=== PATIENT | male | born 1945 | race African-American/Black ===

== ENCOUNTER 2018-07-12 09:17 | Inpatient (IN) | payer OTHER ==
--- NOTE | 2018-07-12 09:45 | PDOC ---
History of Present Illness - General Chief Complaint: Blood Sugar Problem Stated Complaint: LOW SUGAR Time Seen by Provider: 07/12/18 09:44 - History of Present Illness Initial Comments: 07/12/18 09:54 History obtained with assistance of daughter at bedside (Shivani Alcazar ) Patient is a 72 year old male with history of diabetes mellitus (non insulin dependent; on glipizide and metformin), hypertension, vascular dementia presents with complaint of lethargy. As per patient's daughter at bedside, this morning he was minimally responsive, and expressed difficulty getting up from bed. His fingerstick blood glucose was measured at 28, prompting his daughter to bring him to the Emergency Department. The daughter administers the patient' s medications, and denies any recent changes, missing or additional doses of medication. He last received his Glipizide, and Metformin last evening. He did not receive any of his home medications this morning. No recent changes in his diet. The daughter endorses that he had similar episode of hypoglycemia one year ago that was treated in [facility]. Denies recent sick contacts, subjective fevers, chills, shortness of breath, cough, chest pain, palpitations , abdominal pain, nausea, vomiting, diarrhea, hematochezia, hematuria, dysuria. Per daughter at bedside, patient appears to be at his baseline. In ED He was given 1 amp D50, with resulting fingerstick blood glucose of 132, subsequently dropping to 86. PMH: diabetes mellitus (non insulin dependent; on glipizide and metformin), hypertension, vascular dementia PSH: right knee surgery 20 years ago Family history Mother: in her 60s due to unknown metastatic cancer Father: unable to provide Social: Lives in [place], currently visiting family. Denies smoking history. Used to drink one beer a day, however no recent alcohol use. Denies illicit drug use. 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 Past History - Travel Traveled outside of the country in the last 30 days: No Close contact w/someone who was outside of country & ill: No - Past Medical History Allergies/Adverse Reactions: Allergies Allergy/AdvReac Type Severity Reaction Status Date / Time No Known Allergies Allergy Verified 07/12/18 09:20 Home Medications: Ambulatory Orders Amlodipine Besylate 10 mg PO DAILY 07/12/18 Aspirin [ASA -] 81 mg PO DAILY 07/12/18 Donepezil HCl 10 mg PO DAILY 07/12/18 Furosemide 20 mg PO DAILY 07/12/18 Glipizide [Glipizide ER] 10 mg PO DAILY 07/12/18 Losartan Potassium 100 mg PO DAILY 07/12/18 Metformin HCl [Glucophage] 1,000 mg PO DAILY 07/12/18 COPD: No Dementia: Yes Diabetes: Yes HTN: Yes - Surgical History Orthopedic Surgery: Yes (right knee surgery (20 years ago)) - Family Disease History Family Disease History: CA: Mother (unknown metastatic cancer) - Immunization History Immunization Up to Date: No - Suicide/Smoking/Psychosocial Hx Smoking History: Never smoked Have you smoked in the past 12 months: No Information on smoking cessation initiated: No Hx Alcohol Use: Yes (one beer/ day ) Drug/Substance Use Hx: No Substance Use Type: None Review of Systems - Review of Systems Able to Perform ROS?: Yes Is the patient limited Czech proficient: No Constitutional: No: Chills, Diaphoresis, Fever, Night Sweats HEENTM: No: Recent change in vision, Throat Pain, Throat Swelling, Difficulty Swallowing Respiratory: No: Cough, Orthopnea, Shortness of Breath, Stridor, Wheezing, Hemoptysis Cardiac (ROS): No: Chest Pain, Palpitations, Syncope ABD/GI: No: Abdominal Distended, Blood Streaked Bowels, Constipated, Diarrhea, Nausea, Rectal Bleeding, Tarry Stools : No: Dysuria, Discharge, Flank Pain, Hematuria Neurological: No: Headache, Paresthesia, Tremors Psychiatric: Yes: Depression *Physical Exam - Vital Signs Last Vital Signs Temp Pulse Resp BP Pulse Ox 0/0 L 07/12/18 09:21 - Physical Exam General Appearance: No: Apparent Distress HEENT: positive: EOMI, FORREST. negative: Scleral Icterus (R), Scleral Icterus (L) , Pharyngeal Erythema, Tonsillar Exudate Neck: positive: Trachea midline, Supple. negative: Stridor, Lymphadenopathy (R) , Lymphadenopathy (L), Rigidity Respiratory/Chest: positive: Lungs Clear, Normal Breath Sounds. negative: Respiratory Distress, Accessory Muscle Use, Crackles, Rales, Stridor, Wheezing Cardiovascular: positive: Regular Rhythm, Regular Rate, S1, S2. negative: Murmur, Tachycardia, Irregular Gastrointestinal/Abdominal: positive: Normal Bowel Sounds, Flat, Soft. negative : Tender, Guarding, Rebound, Tenderness Neurologic: positive: irrigation worker II-XII NML intact, Alert, Motor Strength 5/5. negative: Fully Oriented ED Treatment Course - LABORATORY CBC & Chemistry Diagram: 07/12/18 10:13 07/12/18 10:13 Medical Decision Making - Medical Decision Making 07/12/18 12:08 Patient is a 72 year old male with history of noninsulin dependent diabetes mellitus, hypertension, vascular dementia presented hypoglycemic to 28 upon home fingerstick blood glucose. Patient's daughter at bedside dispenses patient's medications. Denies recent changes in medication, no skipped or doubled doses. Denies recent insulin use. Last Glipizide yesterday evening. Hypoglycemia may be secondary to excessive oral hypglycemic administration ( patient is poor historian unable to confirm history), poor diet, or sepsis. Placing patient on D10% drip Follow CBC, CMP, TSH, Lactic acid, Obtain blood cultures, urinalysis, urine culture, rectal temperature; sepsis workup Obtain chest radiograph, EKG Add on HbA1c Chest radiograph unrevealing. Lactic acid 1.0 TSH 3.38 Repeat fingerstick BGM 71 (decreased from 86 earlier). Patient is on D10% drip Repeat rectal temperature 94.8F (on Shahbaz hugger). Concern that hypothermia may be secondary to hypoglycemic seizure, vs sepsis. 07/12/18 13:13 Will admit for observation to monitor blood glucose. *DC/Admit/Observation/Transfer Diagnosis at time of Disposition: Hypoglycemia - Discharge Dispostion Decision to Admit order: Yes - Referrals - Patient Instructions - Post Discharge Activity
[2018-07-12] MEDS ORDERED: SODIUM CHLORIDE 2,722 ML IV ONE (10:09)
[2018-07-12] MEDS ORDERED: DEXTROSE 10%-WATER - 1,000 ML IV SCH (10:30)
[2018-07-12 10:45] LABS: HEMATOCRIT 40.7 % (35.4-49); MCH 28.1 pg (25.7-33.7); MCHC 31.9 g/dl (32.0-35.9); MEAN PLT VOLUME 10.4 fl (7.5-11.1); PLATELET COUNT 164 K/MM3 (134-434); RBC 4.62 M/mm3 (4.00-5.60); RDW 15.1 % (11.9-15.9); WHITE BLOOD COUNT 5.8 K/mm3 (4.0-10.0)
--- NOTE | 2018-07-12 11:07 | PDOC ---
Documentation entered by Megan Mora SCRIBE, acting as scribe for Nirav Mccauley MD. Nirav Mccauley MD: This documentation has been prepared by the Abby senior Nirvannie, SCRIBE, under my direction and personally reviewed by me in its entirety. I confirm that the documentation accurately reflects all work, treatment, procedures, and medical decision making performed by me. Attending Attestation - Resident Resident Name: Ney Chandra - ED Attending Attestation I have performed the following: I have examined & evaluated the patient, The case was reviewed & discussed with the resident, I agree w/resident's findings & plan - HPI HPI: 07/12/18 11:03 CC: AMS and hypoglycemia HPI: The patient is a 72 year old male, with a significant past medical history of HTN, DM, and vascular dementia, who presents to the emergency department with, AMS and hypoglycemia. As per family at bedside, he was found to be unresponsive prompting their call to EMS. As per EMS, en route his BGM was 28 and he was given D50 thus, he became responsive but, lethargic. Patient just traveled from [place] yesterday and grandson notes he was eating but, skipped a few meals. Patient had a similar episode a few months ago in [place] at which time he was given sugar and discharged home. Patient is demented at baseline thus, history was obtained via family at bedside. Allergies: NKDA Social History: Visiting from [place]. Nonsmoker. Denies EtOH use and recreational drug use. - Physicial Exam PE: 07/12/18 11:03 Exam: Vitals: Triage Vital signs reviewed General Appearance: no acute distress, well nourished well developed, Head: Atraumatic, normocephalic Throat: +Dry mucous membranes. Neck: Supple Chest Wall: Nontender Cardiac: Regular rate and rhythm, no murmurs, no rubs, no gallops, Lungs: Clear to auscultation bilateral, good air movement bilaterally, Abdomen: Soft, nondistended, normal bowel sounds, nontender to palpation Rectal: Exam deferred Extremities: Full range of motion to all extremities, no cyanosis, clubbing, or edema Skin: Warm and dry, no rashes or lesions, no petechiae Neuro: +Demented, Slow to respond to questioning, AOx2; Cranial Nerves 2-12 grossly intact, Strength intact to all extremities, Sensation intact to all extremities Psych: normal mood, normal affect - Medical Decision Making 07/12/18 11:04 72 year old male, with a significant past medical history of HTN, DM, and vascular dementia, who presents to the emergency department with, AMS and hypoglycemia. Plan is: Sepsis protocol/Workup D10 Shahbaz Hagan 07/12/18 15:51 History and examination consistent with persistent hypo-glycemia likely secondary to patient being on a sulfonylurea Hypothermia likely secondary to bite diabetic seizure this morning it is correcting nicely with bear tcaos No fever no white count no elevated lactic acid low suspicion for infectious at this time given need for D10 drip and that patient is on a long testing anti- hyperglycemic we'll admit to medicine for further management. Heart Score/ECG Review - ECG Impressions Comment:: 07/12/18 15:51 EKG performed at 948 demonstrates normal sinus rhythm [address] elevations or T-wave inversions. Interpreted by me.
[2018-07-12 11:11] LABS: EPI CELLS 6.3 /HPF (0-5/HPF); URINE APPEARANCE CLOUDY; URINE BACTERIA 0.5 /hpf (NEGATIVE); URINE BILIRUBIN NEGATIVE (NEGATIVE); URINE CASTS 46 /lpf (0-8); URINE COLOR YELLOW; URINE GLUCOSE (UA) NEGATIVE (NEGATIVE); URINE KETONE TRACE (NEGATIVE); URINE LEUK ESTERASE NEGATIVE (NEGATIVE); URINE NITRITE NEGATIVE (NEGATIVE); URINE PROTEIN 2+ (NEGATIVE); URINE RBC 1 /hpf (0-4); URINE UROBILINOGEN 0.2 mg/dL (0.2-1.0); URINE WBC 5 /hpf (0-5)
[2018-07-12 11:39] LABS: ALBUMIN 3.4 g/dl (3.4-5.0); ALK PHOS 138 U/L (45-117); ANION GAP 8 MMOL/L (8-16); BILIRUBIN,TOTAL 0.2 mg/dL (0.2-1); BLOOD UREA NITROGEN 45 mg/dL (7-18); CALCIUM 9.3 mg/dL (8.5-10.1); CHLORIDE 112 mmol/L (98-107); CO2 23 mmol/L (21-32); CREATININE 1.8 mg/dL (0.55-1.3); GLUCOSE,RANDOM 81 mg/dL (74-106); POTASSIUM 4.5 mmol/L (3.5-5.1); SGOT/AST 48 U/L (15-37); SGPT/ALT 60 U/L (13-61); SODIUM 143 mmol/L (136-145); TOT PROT 7.3 g/dl (6.4-8.2)
[2018-07-12 11:44] LABS: ACETONE SERUM NEGATIVE (NEGATIVE)
--- NOTE | 2018-07-12 14:24 | HP ---
CHIEF COMPLAINT: hypoglycemia PCP: Dr. Gray ([place]) HISTORY OF PRESENT ILLNESS: 72 y/o M with PMH NIDDM (on glipizide, metformin), HTN, vascular dementia, who presents to the ED c/o lethargy that started this AM. As per daughter at bedside , pt was so lethargic this AM that he was barely arousable. She checked his BG twice and it was 28. For this reason, she called EMS and he was brought to [facility] for further evaluation. She states that his BG has been ranging 56-96 in the AM at baseline. His last meds were last night and consisted of glipizide and metformin. He has been on these meds for four and twelve years respectively. Does not follow with an delivery architect, and is given meds by his primary, Dr. Gray. No recent illnesses. Pt has had a poor appetite over the last few days. Denies BARONE, fever, chills, SOB, chest pain or pressure, or changes in urinary or bowel function. At baseline, pt lives with his daughter. Has a home health aid 2x / week. ER course was notable for: (1) 1 amp d50, d10 gtt (2) hypothermic ~94F (3) Recent Travel: denies PAST MEDICAL HISTORY: as above PAST SURGICAL HISTORY: R knee sx 20 yrs ago Social History: lives in [place] Smoking: denies Alcohol: denies Drugs: denies Family History: mother- age 60s passed from unknown met cancer Allergies No Known Allergies Allergy (Verified 07/12/18 09:20) HOME MEDICATIONS: Home Medications Medication Instructions Recorded Amlodipine Besylate 10 mg PO DAILY 07/12/18 Aspirin [ASA -] 81 mg PO DAILY 07/12/18 Donepezil HCl 10 mg PO DAILY 07/12/18 Furosemide 20 mg PO DAILY 07/12/18 Glipizide [Glipizide ER] 10 mg PO DAILY 07/12/18 Losartan Potassium 100 mg PO DAILY 07/12/18 Metformin HCl [Glucophage] 1,000 mg PO DAILY 07/12/18 confirmed dosages and meds with daughter verbally REVIEW OF SYSTEMS CONSTITUTIONAL: +lethargy, hypothermia Absent: fever, chills, diaphoresis, generalized weakness, malaise, loss of appetite, weight change HEENT: Absent: rhinorrhea, nasal congestion, throat pain, throat swelling, difficulty swallowing, mouth swelling, ear pain, eye pain, visual changes CARDIOVASCULAR: Absent: chest pain, syncope, palpitations, irregular heart rate, lightheadedness , peripheral edema RESPIRATORY: Absent: cough, shortness of breath, dyspnea with exertion, orthopnea, wheezing, stridor, hemoptysis GASTROINTESTINAL: Absent: abdominal pain, abdominal distension, nausea, vomiting, diarrhea, constipation, melena, hematochezia GENITOURINARY: Absent: dysuria, frequency, urgency, hesitancy, hematuria, flank pain, genital pain MUSCULOSKELETAL: Absent: myalgia, arthralgia, joint swelling, back pain, neck pain SKIN: Absent: rash, itching, pallor HEMATOLOGIC/IMMUNOLOGIC: Absent: easy bleeding, easy bruising, lymphadenopathy, frequent infections ENDOCRINE: Absent: unexplained weight gain, unexplained weight loss, heat intolerance, cold intolerance NEUROLOGIC: Absent: headache, focal weakness or paresthesias, dizziness, unsteady gait, seizure, mental status changes, bladder or bowel incontinence PSYCHIATRIC: Absent: anxiety, depression, suicidal or homicidal ideation, hallucinations. PHYSICAL EXAMINATION Vital Signs - 24 hr 07/12/18 07/12/18 07/12/18 09:21 10:20 12:36 Temperature 94.3 F L 94.8 F L Pulse Rate 58 L Pulse Rate [ 59 L Left] Respiratory 16 18 Rate Blood Pressure 169/91 Blood Pressure 138/68 [Left Arm] O2 Sat by Pulse 100 100 Oximetry (%) 07/12/18 07/12/18 13:44 14:04 Temperature 97.4 F L 94.8 F L Pulse Rate Pulse Rate [ 56 L Left] Respiratory 18 Rate Blood Pressure Blood Pressure 129/87 [Left Arm] O2 Sat by Pulse 98 Oximetry (%) GENERAL: Lethargic. AAO x2. has dementia. +sandra hugger HEAD: Normal with no signs of trauma. EYES: Pupils equal, round and reactive to light, extraocular movements intact, sclera anicteric, conjunctiva clear. EARS, NOSE, THROAT: Ears normal, nares patent, oropharynx clear without exudates. Dry mucous membranes. NECK: Normal range of motion, supple LUNGS: Breath sounds equal, clear to auscultation bilaterally. No wheezes, and no crackles. No accessory muscle use. HEART: Regular rate and rhythm, normal S1 and S2 without murmur, rub or gallop. ABDOMEN: Soft, nontender, not distended, normoactive bowel sounds, no guarding LOWER EXTREMITIES: 2+ pt pulses, warm, well-perfused. 2+ pitting edema b/l NEUROLOGICAL: Cranial nerves II-XII intact. Normal speech. Normal gait. PSYCHIATRIC: Cooperative. Good eye contact. SKIN: Warm, dry Laboratory Results 07/12/18 07/12/18 07/12/18 10:13 10:13 10:14 WBC 5.8 Hgb 13.0 Hct 40.7 Plt Count 164 Sodium 143 Potassium 4.5 Chloride 112 H BUN 45 H Creatinine 1.8 H POC Glucometer Alkaline Phosphatase 138 H TSH 3.93 H Urine Protein 2+ H Urine Ketones Trace H Urine Urobilinogen 0.2 Ur Leukocyte Esterase Negative Urine WBC (Auto) 5 Acetone, Qual Negative 07/12/18 07/12/18 12:28 13:49 Creatinine POC Glucometer 71 165 Alkaline Phosphatase EKG: +sinus layton with PVCs, qtc 412ms. no acute st-t wave changes CXR: without acute changes ASSESSMENT/PLAN: 72 y/o M with PMH NIDDM (on glipizide, metformin), HTN, vascular dementia, who presents to the ED c/o lethargy that started this AM. #Hypoglycemia likely 2/2 medications -likely as pt with a1c 6.6, sugar likely overcorrected with glipizide, metformin -with elderly, need to allow for higher BG levels to avoid for falls -will c/w d10 gtt for now. cont to monitor BG q3h. once BG consistently elevated can dc gtt -will not restart ISS at this time to avoid further hypoglycemic events. can start tomorrow -hold glipizide, metformin #Hypothermia likely 2/2 hypoglycemia -will c/w sandra balderrama for now -should improve once BG corrected #HTN- controlled -c/w norvasc -hold losartan # KIARA or KIARA on CKD -no evidence of baseline -will hold losartan -will send urine Na, Cr to check FEna #LE Edema -may be 2/2 CHF; no known history of. as per daughter, past ECHO have been WNL -c/w lasix tomorrow #vascular dementia -c/w aricept #F/E/N d10 gtt 100 cc/hr continue to follow lytes diabetic, sodium controlled diet #PPX DVT: SCD's #Dispo med-surg obs anticipate dc in 24-48 hrs if pt sugar improves pt to leave for [place] on sunday as per family Visit type - Emergency Visit Emergency Visit: Yes ED Registration Date: 07/12/18 Care time: The patient presented to the Emergency Department on the above date and was hospitalized for further evaluation of their emergent condition. - New Patient This patient is new to me today: Yes Date on this admission: 07/12/18 - Critical Care Critical Care patient: No
--- NOTE | 2018-07-12 14:28 | PN ---
Teaching Attending Note Name of Resident: Veronika Russell ATTENDING PHYSICIAN STATEMENT I saw and evaluated the patient. I reviewed the resident's note and discussed the case with the resident. I agree with the resident's findings and plan as documented. SUBJECTIVE: This is a 72 year old man with a history of HTN, type 2 DM, dementia who comes to the ED because of lethargy. Her daughter found him minimally arousable. She found his blood glucose to be 28 and so she called EMS. She notes that he has not been eating well. He last took metformin and glipizide last night. OBJECTIVE: Vital Signs Period Temp Pulse Resp BP Sys/Paidlla Pulse Ox Last 24 Hr 94.3 F-97.4 F 56-59 16-18 129-169/68-91 98-100 GENERAL: Lethargic, confused HEART: S1S2, bradycardic LUNGS: Clear ABDOMEN: Soft, non-tender, non-distended, normal BS EXTREMITIES: 2+ edema Laboratory Tests 07/12/18 07/12/18 07/12/18 09:57 10:13 10:13 WBC 5.8 RBC 4.62 Hgb 13.0 Hct 40.7 MCV 88.0 MCH 28.1 MCHC 31.9 L RDW 15.1 Plt Count 164 MPV 10.4 Sodium 143 Potassium 4.5 Chloride 112 H Carbon Dioxide 23 Anion Gap 8 BUN 45 H Creatinine 1.8 H Est GFR (CKD-EPI)AfAm 42.63 Est GFR (CKD-EPI)NonAf 36.78 POC Glucometer 86 Random Glucose 81 Hemoglobin A1c % Lactic Acid Calcium 9.3 Total Bilirubin 0.2 AST 48 H ALT 60 Alkaline Phosphatase 138 H Troponin I < 0.02 Total Protein 7.3 Albumin 3.4 TSH 3.93 H Urine Color Urine Appearance Urine pH Ur Specific [place] Urine Protein Urine Glucose (UA) Urine Ketones Urine Blood Urine Nitrite Urine Bilirubin Urine Urobilinogen Ur Leukocyte Esterase Urine WBC (Auto) Urine RBC (Auto) Urine Casts (Auto) U Epithel Cells (Auto) Urine Bacteria (Auto) Acetone, Qual Negative 07/12/18 07/12/18 07/12/18 10:13 10:14 10:14 WBC RBC Hgb Hct MCV MCH MCHC RDW Plt Count MPV Sodium Potassium Chloride Carbon Dioxide Anion Gap BUN Creatinine Est GFR (CKD-EPI)AfAm Est GFR (CKD-EPI)NonAf POC Glucometer Random Glucose Hemoglobin A1c % 6.6 H Lactic Acid 1.0 Calcium Total Bilirubin AST ALT Alkaline Phosphatase Troponin I Total Protein Albumin TSH Urine Color Yellow Urine Appearance Cloudy Urine pH 5.0 Ur Specific [place] 1.017 Urine Protein 2+ H Urine Glucose (UA) Negative Urine Ketones Trace H Urine Blood Negative Urine Nitrite Negative Urine Bilirubin Negative Urine Urobilinogen 0.2 Ur Leukocyte Esterase Negative Urine WBC (Auto) 5 Urine RBC (Auto) 1 Urine Casts (Auto) 46 U Epithel Cells (Auto) 6.3 Urine Bacteria (Auto) 0.5 Acetone, Qual 07/12/18 07/12/18 12:28 13:49 WBC RBC Hgb Hct MCV MCH MCHC RDW Plt Count MPV Sodium Potassium Chloride Carbon Dioxide Anion Gap BUN Creatinine Est GFR (CKD-EPI)AfAm Est GFR (CKD-EPI)NonAf POC Glucometer 71 165 Random Glucose Hemoglobin A1c % Lactic Acid Calcium Total Bilirubin AST ALT Alkaline Phosphatase Troponin I Total Protein Albumin TSH Urine Color Urine Appearance Urine pH Ur Specific [place] Urine Protein Urine Glucose (UA) Urine Ketones Urine Blood Urine Nitrite Urine Bilirubin Urine Urobilinogen Ur Leukocyte Esterase Urine WBC (Auto) Urine RBC (Auto) Urine Casts (Auto) U Epithel Cells (Auto) Urine Bacteria (Auto) Acetone, Qual Home Medications Medication Instructions Recorded Amlodipine Besylate 10 mg PO DAILY 07/12/18 Aspirin [ASA -] 81 mg PO DAILY 07/12/18 Donepezil HCl 10 mg PO DAILY 07/12/18 Furosemide 20 mg PO DAILY 07/12/18 Glipizide [Glipizide ER] 10 mg PO DAILY 07/12/18 Losartan Potassium 100 mg PO DAILY 07/12/18 Metformin HCl [Glucophage] 1,000 mg PO DAILY 07/12/18 ASSESSMENT AND PLAN: This is a 72 year old man with a history of HTN, type 2 DM, dementia who presented to the ED with lethargy and hypoglycemia. 1. Type 2 DM, uncontrolled, with profound hypoglycemia and hypothermia - Hold metformin, glipizide - Continue IV D10 and monitor fingersticks closely - Continue warming blanket 2. Possible hypothyroidism - TSH is slightly elevated at 3.93 - Will check FT4 3. Probable acute kidney injury on stage 3 CKD - Likely secondary to poor oral intake, diuretic use - Check renal US - IV fluid - Monitor BUN, creatinine 4. Leg edema - On Lasix at home - will hold for now secondary to elevated creatinine - Daughter denies history of CHF - Possibly secondary to hypoalbuminemia (albumin is 3.4 but will recheck after hydration, urine has 2+ protein) - Possibly secondary to Norvasc 5. HTN - Continue Norvasc - Hold Cozaar, Lasix for now secondary to elevated creatinine 6. Dementia - Continue Aricept
[2018-07-12] MEDS ORDERED: INSULIN SLIDING SCALE (NOVOLOG) 1 VIAL SQ SCH (16:30)
--- NOTE | 2018-07-13 07:51 | PN ---
Progress Note, Physician Chief Complaint: No compliant eating breakfast alert - Current Medication List Current Medications: Active Medications Amlodipine Besylate (Norvasc -) 10 mg PO DAILY JANE Aspirin (Asa -) 81 mg PO DAILY JANE Donepezil HCl (Aricept -) 10 mg PO DAILY JANE Dextrose (D10w -) 1,000 mls @ 100 mls/hr IV ASDIR JANE Last Admin: 07/12/18 11:03 Dose: 100 mls/hr - Objective Vital Signs: Vital Signs Temperature 98.4 F 07/13/18 07:04 Pulse Rate 60 07/13/18 07:04 Respiratory Rate 20 07/13/18 07:04 Blood Pressure 137/77 07/13/18 07:04 O2 Sat by Pulse Oximetry (%) 98 07/12/18 21:00 Elderly man plaesant no acute distress HEENT: Mm moist, no anemia, NECK: No JVd No Bruit CHEST: CTA B/L CVS: S1S2 R ABD: No distention, non tender Bs + EXT: No dipika afeet, no calf tenderness PROGRESSIVE CARE NURSE: Alert non focal Labs: CBC, BMP 07/13/18 05:30 07/13/18 05:30 Problem List - Problems (1) Toxic metabolic encephalopathy Assessment/Plan: AMS due to Hypoglycemia , now FS are > 200 will switch to D% last Glipizide > 48 hrs ago F/U Accuchecks Code(s): G92 - TOXIC ENCEPHALOPATHY (2) Hypoglycemia Code(s): E16.2 - HYPOGLYCEMIA, UNSPECIFIED (3) HTN (hypertension) Code(s): I10 - ESSENTIAL (PRIMARY) HYPERTENSION (4) KIARA (acute kidney injury) Assessment/Plan: Imprved with Hydration F/U BMP Code(s): N17.9 - ACUTE KIDNEY FAILURE, UNSPECIFIED (5) Dehydration Assessment/Plan: Corrected with IV Hydration Code(s): E86.0 - DEHYDRATION (6) Dementia Assessment/Plan: Stable no agitation Code(s): F03.90 - UNSPECIFIED DEMENTIA WITHOUT BEHAVIORAL DISTURBANCE (7) T2DM (type 2 diabetes mellitus) Assessment/Plan: Oral meds are on holsd due to hyperglycemia. Code(s): E11.9 - TYPE 2 DIABETES MELLITUS WITHOUT COMPLICATIONS
[2018-07-13 07:55] LABS: BASO % 0.4 % (0-2.0); EOS % 1.4 % (0-4.5); HEMATOCRIT 33.5 % (35.4-49); MCH 28.5 pg (25.7-33.7); MCHC 32.8 g/dl (32.0-35.9); MEAN CELL VOLUME 86.6 fl (80-96); NEUT % 45.2 % (42.8-82.8); PLATELET COUNT 136 K/MM3 (134-434); RBC 3.86 M/mm3 (4.00-5.60); RDW 14.6 % (11.9-15.9); WHITE BLOOD COUNT 5.7 K/mm3 (4.0-10.0)
[2018-07-13 08:34] LABS: ALBUMIN 2.7 g/dl (3.4-5.0); BILIRUBIN,TOTAL 0.3 mg/dL (0.2-1); CALCIUM 8.5 mg/dL (8.5-10.1); CREATININE 1.2 mg/dL (0.55-1.3); MAGNESIUM 1.7 mg/dL (1.8-2.4); POTASSIUM 4.2 mmol/L (3.5-5.1); TOT PROT 5.8 g/dl (6.4-8.2)
[2018-07-13] MEDS ORDERED: FUROSEMIDE 20 MG TABLET (FP) PO SCH (10:00)
[2018-07-13] MEDS: ASPIRIN 81 MG CHEWABLE TABLETS PO SCH (10:07)
[2018-07-13] MEDS: DONEPEZIL HCL 10 MG TABLET (FP) PO SCH (10:07)
[2018-07-13] MEDS: amLODIPine BESYLATE 10 MG TABLET (FP) PO SCH (10:07)
--- NOTE | 2018-07-13 11:43 | EKG ---
Test Reason : Blood Pressure : / mmHG Vent. Rate : 057 BPM Atrial Rate : 057 BPM P-R Int : 176 ms QRS Dur : 098 ms QT Int : 424 ms P-R-T Axes : 073 060 044 degrees QTc Int : 412 ms SINUS BRADYCARDIA WITH OCCASIONAL PREMATURE VENTRICULAR COMPLEXES OTHERWISE NORMAL ECG NO PREVIOUS ECGS AVAILABLE Confirmed by DANNY ALARCON, MICHEL ([id number]) on 07/13/2018 11:43:11 AM Referred By: Confirmed By:MICHEL DELGADO MD
[2018-07-13] MEDS: DEXTROSE 5%-0.45% SALINE 1,000 ML IV SCH (15:32)
[2018-07-14] MEDS: DEXTROSE 5%-0.45% SALINE 1,000 ML IV SCH (04:00)
[2018-07-14 08:29] LABS: BASO % 0.4 % (0-2.0); EOS % 1.7 % (0-4.5); HEMATOCRIT 34.3 % (35.4-49); HEMOGLOBIN 11.2 GM/dL (11.7-16.9); LYMPH % 36.7 % (8-40); MCH 28.6 pg (25.7-33.7); MCHC 32.8 g/dl (32.0-35.9); MEAN CELL VOLUME 87.1 fl (80-96); MONO % 11.3 % (3.8-10.2); NEUT % 49.9 % (42.8-82.8); PLATELET COUNT 122 K/MM3 (134-434); RBC 3.93 M/mm3 (4.00-5.60); RDW 14.6 % (11.9-15.9); WHITE BLOOD COUNT 5.4 K/mm3 (4.0-10.0)
[2018-07-14 09:02] LABS: CALCIUM 8.5 mg/dL (8.5-10.1); CREATININE 0.8 mg/dL (0.55-1.3); POTASSIUM 4.1 mmol/L (3.5-5.1)
[2018-07-14] MEDS: DONEPEZIL HCL 10 MG TABLET (FP) PO SCH (09:10)
[2018-07-14] MEDS: amLODIPine BESYLATE 10 MG TABLET (FP) PO SCH (09:10)
[2018-07-14] MEDS: ASPIRIN 81 MG CHEWABLE TABLETS PO SCH (09:10)
--- NOTE | 2018-07-14 12:24 | PN ---
Physical Exam: SUBJECTIVE: Patient seen and examined. He is confused but has no complaints. OBJECTIVE: Vital Signs Period Temp Pulse Resp BP Sys/Padilla Pulse Ox Last 24 Hr 98.4 F-98.9 F 66-71 18-22 140-151/80-88 GENERAL: The patient is awake, alert, confused, in no acute distress. LUNGS: Breath sounds equal, clear to auscultation bilaterally, no wheezes, no crackles, no accessory muscle use. HEART: Regular rate and rhythm, S1, S2 without murmur, rub or gallop. ABDOMEN: Soft, nontender, nondistended, normoactive bowel sounds, no guarding, no rebound, no hepatosplenomegaly, no masses. EXTREMITIES: 2+ pulses, warm, well-perfused, no edema. Laboratory Results - last 24 hr 07/13/18 07/13/18 07/14/18 16:16 21:33 05:50 WBC RBC Hgb Hct MCV MCH MCHC RDW Plt Count MPV Absolute Neuts (auto) Neutrophils % Lymphocytes % Monocytes % Eosinophils % Basophils % Nucleated RBC % Sodium Potassium Chloride Carbon Dioxide Anion Gap BUN Creatinine Est GFR (CKD-EPI)AfAm Est GFR (CKD-EPI)NonAf POC Glucometer 214 205 Random Glucose Calcium Ur Random Creatinine < 13.0 L Ur Random Sodium 07/14/18 07/14/18 07/14/18 05:50 06:09 07:50 WBC 5.4 RBC 3.93 L Hgb 11.2 L Hct 34.3 L MCV 87.1 MCH 28.6 MCHC 32.8 RDW 14.6 Plt Count 122 L MPV 10.0 Absolute Neuts (auto) 2.7 Neutrophils % 49.9 Lymphocytes % 36.7 Monocytes % 11.3 H Eosinophils % 1.7 Basophils % 0.4 Nucleated RBC % 0 Sodium Potassium Chloride Carbon Dioxide Anion Gap BUN Creatinine Est GFR (CKD-EPI)AfAm Est GFR (CKD-EPI)NonAf POC Glucometer 136 Random Glucose Calcium Ur Random Creatinine Ur Random Sodium 75 07/14/18 07/14/18 07:50 12:00 WBC RBC Hgb Hct MCV MCH MCHC RDW Plt Count MPV Absolute Neuts (auto) Neutrophils % Lymphocytes % Monocytes % Eosinophils % Basophils % Nucleated RBC % Sodium 144 Potassium 4.1 Chloride 113 H Carbon Dioxide 25 Anion Gap 6 L BUN 21 H Creatinine 0.8 Est GFR (CKD-EPI)AfAm 103.44 Est GFR (CKD-EPI)NonAf 89.25 POC Glucometer 273 Random Glucose 152 H Calcium 8.5 Ur Random Creatinine Ur Random Sodium Active Medications Generic Name Dose Route Start Last Admin Trade Name Amilcarq PRN Reason Stop Dose Admin Amlodipine Besylate 10 mg 07/13/18 10:00 07/14/18 09:10 Norvasc - PO 10 mg DAILY JANE Administration Aspirin 81 mg 07/13/18 10:00 07/14/18 09:10 Asa - PO 81 mg DAILY JANE Administration Donepezil HCl 10 mg 07/13/18 10:00 07/14/18 09:10 Aricept - PO 10 mg DAILY JANE Administration ASSESSMENT/PLAN: This is a 72 year old man with a history of HTN, type 2 DM, dementia who presented to the ED with lethargy and hypoglycemia. 1. Type 2 DM, uncontrolled, with profound hypoglycemia, hypothermia, acute metabolic encephalopathy - Mental status improved - Hypothermia resolved - IVF changed from D10 to D5 yesterday - will discontinue and continue to monitor fingersticks - Continue to hold metformin, glipizide 2. No evidence of hypothyroidism - TSH slightly elevated at 3.93 with normal FT4 3. Acute kidney injury - Likely secondary to poor oral intake, diuretic use - Improved - Renal US shows left kidney simple cysts, large prostate 4. Leg edema - Daughter denies history of CHF - Possibly secondary to hypoalbuminemia, Norvasc - Lasix held secondary to KIARA 5. HTN - Continue Norvasc - Resume Cozaar - Lasix held secondary to KIARA 6. Dementia - Continue Aricept Visit type - Emergency Visit Emergency Visit: Yes ED Registration Date: 07/12/18 Care time: The patient presented to the Emergency Department on the above date and was hospitalized for further evaluation of their emergent condition. - New Patient This patient is new to me today: No - Critical Care Critical Care patient: No - Discharge Referral Referred to [facility] Med P.C.: No
[2018-07-14] MEDS: LOSARTAN POTASSIUM 50 MG TABLET (FP) PO SCH (12:42)
[2018-07-14 14:25] VITALS: BMI 18.8
[2018-07-15] MEDS ORDERED: QUEtiapine FUMARATE 25 MG TABLET (FP) PO ONE (02:30)
[2018-07-15] MEDS ORDERED: LORazepam 2 MG/ML SDV VIAL IVPUSH ONE (03:15)
[2018-07-15 07:57] LABS: CALCIUM 9.4 mg/dL (8.5-10.1); CREATININE 0.6 mg/dL (0.55-1.3); POTASSIUM 3.8 mmol/L (3.5-5.1)
[2018-07-15] MEDS: amLODIPine BESYLATE 10 MG TABLET (FP) PO SCH (10:33)
[2018-07-15] MEDS: LOSARTAN POTASSIUM 50 MG TABLET (FP) PO SCH (10:33)
[2018-07-15] MEDS: ASPIRIN 81 MG CHEWABLE TABLETS PO SCH (10:33)
[2018-07-15] MEDS: DONEPEZIL HCL 10 MG TABLET (FP) PO SCH (10:33)
--- NOTE | 2018-07-15 13:29 | PN ---
Progress Note, Physician Chief Complaint: lethargy History of Present Illness: seen and examined at bedside, patient agitated overnight and given ativan. This morning he is lethargic and difficult to arouse. - Current Medication List Current Medications: Active Medications Amlodipine Besylate (Norvasc -) 10 mg PO DAILY [facility] Last Admin: 07/15/18 10:33 Dose: Not Given Aspirin (Asa -) 81 mg PO DAILY [facility] Last Admin: 07/15/18 10:33 Dose: Not Given Donepezil HCl (Aricept -) 10 mg PO DAILY [facility] Last Admin: 07/15/18 10:33 Dose: Not Given Losartan Potassium (Cozaar -) 100 mg PO DAILY [facility] Last Admin: 07/15/18 10:33 Dose: Not Given - Objective Vital Signs: Vital Signs Temperature 92.1 F L 07/15/18 12:02 Pulse Rate 61 07/15/18 09:00 Respiratory Rate 20 07/15/18 09:00 Blood Pressure 157/98 07/15/18 09:00 O2 Sat by Pulse Oximetry (%) 96 07/15/18 09:00 Constitutional: Yes: Other (lethargic, awakens to sternal rub) Cardiovascular: Yes: WNL, Regular Rate and Rhythm Respiratory: Yes: WNL, Regular, CTA Bilaterally Gastrointestinal: Yes: WNL, Normal Bowel Sounds, Soft Musculoskeletal: Yes: WNL Extremities: Yes: WNL Edema: Yes Edema: LLE: Trace, RLE: Trace Neurological: Yes: Confusion, Lethargy. No: Alert Labs: CBC, BMP 07/14/18 07:50 07/15/18 06:30 Problem List - Problems (1) KIARA (acute kidney injury) Code(s): N17.9 - ACUTE KIDNEY FAILURE, UNSPECIFIED (2) Dehydration Code(s): E86.0 - DEHYDRATION (3) Dementia Code(s): F03.90 - UNSPECIFIED DEMENTIA WITHOUT BEHAVIORAL DISTURBANCE (4) HTN (hypertension) Code(s): I10 - ESSENTIAL (PRIMARY) HYPERTENSION (5) Hypoglycemia Code(s): E16.2 - HYPOGLYCEMIA, UNSPECIFIED (6) T2DM (type 2 diabetes mellitus) Code(s): E11.9 - TYPE 2 DIABETES MELLITUS WITHOUT COMPLICATIONS (7) Toxic metabolic encephalopathy Code(s): G92 - TOXIC ENCEPHALOPATHY Assessment/Plan 72 year old man with a history of HTN, DM2, and dementia present with lethargy and hypoglycemia 1. Acute metabolic encephalopathy secondary to profound hypoglycemia, hypothermia -mental status was improving until given Ativan last night -AVOID benzos, would favor seroquel -patient again hypothermic, cbc, ua, cultures ordered stat -sandra balderrama -tsh mildly elevated, normal t4 -c/w IVF -BS normalized, off dextrose gtt -continue to hold metformin, glipizide, hba1c 6.6%, patient should be off meds moving forward 2. KIARA, resolved 3. LE edema -possibly from norvsac? chronic in nature? -monitor and resume lasix on discharge 4. HTN -c/w norvasc and cozaar 5. Dementia -on aricept
[2018-07-15 16:25] LABS: BASO % 0.6 % (0-2.0); HEMATOCRIT 34.2 % (35.4-49); HEMOGLOBIN 11.1 GM/dL (11.7-16.9); LYMPH % 32.7 % (8-40); MCHC 32.5 g/dl (32.0-35.9); MEAN CELL VOLUME 86.2 fl (80-96); MEAN PLT VOLUME 10.3 fl (7.5-11.1); MONO % 13.9 % (3.8-10.2); NEUT % 49.8 % (42.8-82.8); PLATELET COUNT 140 K/MM3 (134-434); RBC 3.97 M/mm3 (4.00-5.60); RDW 14.9 % (11.9-15.9); WHITE BLOOD COUNT 3.8 K/mm3 (4.0-10.0)
[2018-07-15] MEDS: DEXTROSE 5%-0.45% SALINE 1,000 ML IV SCH (17:12)
[2018-07-15] MEDS ORDERED: CEFTRIAXONE 1 GM in DEXTROSE 5%-WATER - 100 ML IVPB SCH (17:15)
[2018-07-15 17:32] LABS: BASO % 0.4 % (0-2.0); EOS % 3.1 % (0-4.5); HEMATOCRIT 34.9 % (35.4-49); HEMOGLOBIN 11.3 GM/dL (11.7-16.9); LYMPH % 31.6 % (8-40); MCHC 32.4 g/dl (32.0-35.9); MEAN CELL VOLUME 86.5 fl (80-96); MEAN PLT VOLUME 9.9 fl (7.5-11.1); MONO % 14.6 % (3.8-10.2); NEUT % 50.3 % (42.8-82.8); PLATELET COUNT 138 K/MM3 (134-434); RBC 4.04 M/mm3 (4.00-5.60); WHITE BLOOD COUNT 3.9 K/mm3 (4.0-10.0)
[2018-07-15] MEDS ORDERED: PIPERACILLIN/TAZOBACTAM 3.375 GM VIAL IVPB ONE (17:44)
[2018-07-15] MEDS ORDERED: DEXTROSE 5%-WATER - 50 ML IVPB ONE (17:44)
[2018-07-15] MEDS ORDERED: PIPERACILLIN/TAZOB 3.375 GM 3.375 GM in DEXTROSE 5%-WATER - 50 ML IVPB SCH (18:00)
[2018-07-15 19:21] LABS: PH,URINE 5.5 (5.0-8.0); URINE APPEARANCE CLEAR; URINE BACTERIA 0.5 /hpf (NEGATIVE); URINE BILIRUBIN NEGATIVE (NEGATIVE); URINE CASTS 3 /lpf (0-8); URINE COLOR YELLOW; URINE GLUCOSE (UA) 2+ (NEGATIVE); URINE KETONE NEGATIVE (NEGATIVE); URINE LEUK ESTERASE NEGATIVE (NEGATIVE); URINE NITRITE NEGATIVE (NEGATIVE); URINE PROTEIN 3+ (NEGATIVE); URINE RBC 2 /hpf (0-4); URINE UROBILINOGEN 0.2 mg/dL (0.2-1.0); URINE WBC 0 /hpf (0-5)
[2018-07-16] MEDS ORDERED: DEXTROSE 5%-WATER - 50 ML IVPB ONE ×3 (01:03→17:25)
[2018-07-16] MEDS ORDERED: PIPERACILLIN/TAZOBACTAM 3.375 GM VIAL IVPB ONE ×3 (01:03→17:25)
[2018-07-16] MEDS: PIPERACILLIN/TAZOB 3.375 GM 3.375 GM in DEXTROSE 5%-WATER - 50 ML IVPB SCH ×3 (01:17→17:34)
[2018-07-16] MEDS: DEXTROSE 5%-0.45% SALINE 1,000 ML IV SCH ×2 (01:20→17:35)
[2018-07-16 07:47] LABS: BASO % 0.4 % (0-2.0); EOS % 2.7 % (0-4.5); HEMATOCRIT 34.3 % (35.4-49); HEMOGLOBIN 11.3 GM/dL (11.7-16.9); LYMPH % 39.7 % (8-40); MCH 28.5 pg (25.7-33.7); MEAN CELL VOLUME 86.3 fl (80-96); MEAN PLT VOLUME 9.7 fl (7.5-11.1); MONO % 13.2 % (3.8-10.2); PLATELET COUNT 148 K/MM3 (134-434); RBC 3.97 M/mm3 (4.00-5.60); RDW 15.3 % (11.9-15.9); WHITE BLOOD COUNT 5.3 K/mm3 (4.0-10.0)
[2018-07-16 08:19] LABS: ALBUMIN 2.7 g/dl (3.4-5.0); BILIRUBIN,TOTAL 0.3 mg/dL (0.2-1); CALCIUM 9.1 mg/dL (8.5-10.1); CREATININE 1.3 mg/dL (0.55-1.3); POTASSIUM 4.4 mmol/L (3.5-5.1); TOT PROT 6.1 g/dl (6.4-8.2)
[2018-07-16] MEDS: ASPIRIN 81 MG CHEWABLE TABLETS PO SCH (09:23)
[2018-07-16] MEDS: DONEPEZIL HCL 10 MG TABLET (FP) PO SCH (09:23)
[2018-07-16] MEDS: LOSARTAN POTASSIUM 50 MG TABLET (FP) PO SCH (09:23)
[2018-07-16] MEDS: amLODIPine BESYLATE 10 MG TABLET (FP) PO SCH (09:23)
--- NOTE | 2018-07-16 11:49 | CON.ID ---
Consult Consult Specialty:: infectious diseases Referred by:: Reason for Consultation:: sepsis,hypothermia - Alcohol/Substance Use Hx Alcohol Use: Yes (one beer/ day ) - Smoking History Smoking history: Never smoked Have you smoked in the past 12 months: No Home Medications - Allergies Allergies/Adverse Reactions: Allergies Allergy/AdvReac Type Severity Reaction Status Date / Time No Known Allergies Allergy Verified 07/12/18 09:20 - Home Medications Home Medications: Ambulatory Orders Amlodipine Besylate 10 mg PO DAILY 07/12/18 Aspirin [ASA -] 81 mg PO DAILY 07/12/18 Donepezil HCl 10 mg PO DAILY 07/12/18 Furosemide 20 mg PO DAILY 07/12/18 Glipizide [Glipizide ER] 10 mg PO DAILY 07/12/18 Losartan Potassium 100 mg PO DAILY 07/12/18 Metformin HCl [Glucophage] 1,000 mg PO DAILY 07/12/18 Physical Exam Vital Signs: Vital Signs Temperature 98.8 F 07/16/18 09:00 Pulse Rate 89 07/16/18 09:00 Respiratory Rate 20 07/16/18 09:00 Blood Pressure 139/76 07/16/18 09:00 O2 Sat by Pulse Oximetry (%) 95 07/16/18 09:00 Labs: CBC, BMP 07/16/18 07:10 07/16/18 07:10
--- NOTE | 2018-07-16 11:58 | PN ---
Physical Exam: SUBJECTIVE: Patient seen and examined at the bedside. In no acute distress. accepting feeds. OBJECTIVE: Patient is a 72 year old male with a significant past medical history of diabetes (on glipizide and metformin), hypertension and vascular dementia. Patient presents to the ED with increased lethargy. At home he as noted to be hypoglycemic with a blood sugar in the 20s which prompted an ED visit. Pt has also had a poor appetite over the last few days. Patient lives with his daughter. Has a home health aid. Patient was noted to be hypothermic on 07/15/18 with downtrending blood sugar and started on d51/2 NS and broad spectrum abx Vital Signs Period Temp Pulse Resp BP Sys/Padilla Pulse Ox Last 24 Hr 92.1 F-100.7 F 74-89 20-20 110-139/67-80 95-96 GENERAL: Lethargic. vascular dementia. +sandra hugger discontinued. HEAD: Normal with no signs of trauma. EYES: Pupils equal, round and reactive to light, extraocular movements intact, sclera anicteric, conjunctiva clear. EARS, NOSE, THROAT: Ears normal, nares patent, oropharynx clear without exudates. Dry mucous membranes. NECK: Normal range of motion, supple LUNGS: Breath sounds equal, clear to auscultation bilaterally. No wheezes, and no crackles. No accessory muscle use. HEART: Regular rate and rhythm, normal S1 and S2 without murmur, rub or gallop. ABDOMEN: Soft, nontender, not distended, normoactive bowel sounds, no guarding LOWER EXTREMITIES: 2+ pt pulses, warm, well-perfused. 2+ pitting edema b/l NEUROLOGICAL: Cranial nerves II-XII intact. Normal speech. Normal gait. PSYCHIATRIC: Cooperative. Good eye contact. SKIN: Warm, dry Laboratory Results - last 24 hr 07/15/18 07/15/18 07/15/18 15:00 16:20 17:00 WBC 3.8 L 3.9 L RBC 3.97 L 4.04 Hgb 11.1 L 11.3 L Hct 34.2 L 34.9 L MCV 86.2 86.5 MCH 28.0 28.0 MCHC 32.5 32.4 RDW 14.9 15.0 Plt Count 140 138 MPV 10.3 9.9 Absolute Neuts (auto) 1.9 2.0 Neutrophils % 49.8 50.3 Lymphocytes % 32.7 31.6 Monocytes % 13.9 H 14.6 H Eosinophils % 3.0 3.1 Basophils % 0.6 0.4 Nucleated RBC % 0 0 Sodium Potassium Chloride Carbon Dioxide Anion Gap BUN Creatinine Est GFR (CKD-EPI)AfAm Est GFR (CKD-EPI)NonAf POC Glucometer 87 Random Glucose Calcium Total Bilirubin AST ALT Alkaline Phosphatase Total Protein Albumin Urine Color Urine Appearance Urine pH Ur Specific [place] Urine Protein Urine Glucose (UA) Urine Ketones Urine Blood Urine Nitrite Urine Bilirubin Urine Urobilinogen Ur Leukocyte Esterase Urine WBC (Auto) Urine RBC (Auto) Urine Casts (Auto) U Epithel Cells (Auto) Urine Bacteria (Auto) 07/15/18 07/15/18 07/15/18 17:00 20:28 23:59 WBC RBC Hgb Hct MCV MCH MCHC RDW Plt Count MPV Absolute Neuts (auto) Neutrophils % Lymphocytes % Monocytes % Eosinophils % Basophils % Nucleated RBC % Sodium Potassium Chloride Carbon Dioxide Anion Gap BUN Creatinine Est GFR (CKD-EPI)AfAm Est GFR (CKD-EPI)NonAf POC Glucometer 119 133 Random Glucose Calcium Total Bilirubin AST ALT Alkaline Phosphatase Total Protein Albumin Urine Color Yellow Urine Appearance Clear Urine pH 5.5 Ur Specific [place] 1.014 Urine Protein 3+ H Urine Glucose (UA) 2+ H Urine Ketones Negative Urine Blood 2+ H Urine Nitrite Negative Urine Bilirubin Negative Urine Urobilinogen 0.2 Ur Leukocyte Esterase Negative Urine WBC (Auto) 0 Urine RBC (Auto) 2 Urine Casts (Auto) 3 U Epithel Cells (Auto) 1.0 Urine Bacteria (Auto) 0.5 07/16/18 07/16/18 07/16/18 06:07 07:10 07:10 WBC 5.3 RBC 3.97 L Hgb 11.3 L Hct 34.3 L MCV 86.3 MCH 28.5 MCHC 33.0 RDW 15.3 Plt Count 148 MPV 9.7 Absolute Neuts (auto) 2.3 Neutrophils % 44.0 Lymphocytes % 39.7 D Monocytes % 13.2 H Eosinophils % 2.7 Basophils % 0.4 Nucleated RBC % 0 Sodium 145 Potassium 4.4 Chloride 112 H Carbon Dioxide 27 Anion Gap 7 L BUN 19 H Creatinine 1.3 Est GFR (CKD-EPI)AfAm 63.18 Est GFR (CKD-EPI)NonAf 54.51 POC Glucometer 140 Random Glucose 134 H Calcium 9.1 Total Bilirubin 0.3 AST 40 H ALT 48 Alkaline Phosphatase 111 Total Protein 6.1 L Albumin 2.7 L Urine Color Urine Appearance Urine pH Ur Specific [place] Urine Protein Urine Glucose (UA) Urine Ketones Urine Blood Urine Nitrite Urine Bilirubin Urine Urobilinogen Ur Leukocyte Esterase Urine WBC (Auto) Urine RBC (Auto) Urine Casts (Auto) U Epithel Cells (Auto) Urine Bacteria (Auto) 07/16/18 11:53 WBC RBC Hgb Hct MCV MCH MCHC RDW Plt Count MPV Absolute Neuts (auto) Neutrophils % Lymphocytes % Monocytes % Eosinophils % Basophils % Nucleated RBC % Sodium Potassium Chloride Carbon Dioxide Anion Gap BUN Creatinine Est GFR (CKD-EPI)AfAm Est GFR (CKD-EPI)NonAf POC Glucometer 205 Random Glucose Calcium Total Bilirubin AST ALT Alkaline Phosphatase Total Protein Albumin Urine Color Urine Appearance Urine pH Ur Specific [place] Urine Protein Urine Glucose (UA) Urine Ketones Urine Blood Urine Nitrite Urine Bilirubin Urine Urobilinogen Ur Leukocyte Esterase Urine WBC (Auto) Urine RBC (Auto) Urine Casts (Auto) U Epithel Cells (Auto) Urine Bacteria (Auto) Active Medications Generic Name Dose Route Start Last Admin Trade Name Freq PRN Reason Stop Dose Admin Amlodipine Besylate 10 mg 07/13/18 10:00 07/16/18 09:23 Norvasc - PO 10 mg DAILY JANE Administration Aspirin 81 mg 07/13/18 10:00 07/16/18 09:23 Asa - PO 81 mg DAILY JANE Administration Donepezil HCl 10 mg 07/13/18 10:00 07/16/18 09:23 Aricept - PO 10 mg DAILY JANE Administration Dextrose/Sodium Chloride 1,000 mls @ 100 mls/hr 07/15/18 17:15 07/16/18 01:20 D5-1/2ns - IV 100 mls/hr ASDIR JANE Administration Piperacillin Sod/Tazobactam 50 mls @ 100 mls/hr 07/16/18 02:00 07/16/18 09:23 Sod 3.375 gm/ Dextrose IVPB 100 mls/hr Q8H-IV JANE Administration Protocol Losartan Potassium 100 mg 07/14/18 12:30 07/16/18 09:23 Cozaar - PO 100 mg DAILY JANE Administration ASSESSMENT/PLAN: Patient is a 72 year old male with a significant past medical history of diabetes (on glipizide and metformin), hypertension and vascular dementia. Patient presents to the ED with increased lethargy. At home he as noted to be hypoglycemic with a blood sugar in the 20s which prompted an ED visit. Pt has also had a poor appetite over the last few days. Patient lives with his daughter. Has a home health aid. Patient was noted to be hypothermic on 07/15/18 with downtrending blood sugar and started on d51/2 NS and broad spectrum abx Neuro: Acute metabolic encephalopathy secondary to profound hypoglycemia, hypothermia on admission. s/p jaqueline hugger for hypothermia. hypoglycemia improving off diabetic meds. Mental status improving. Septic workup for hypothermia. Will continue to hold diabetic medications. hmga1 6.6%, patient should be off meds moving forward. monitor bgms. Vascular dementia. Continue supportive care. On Aricept. Renal: Acute kidney injury. On NS. KIARA likely secondary to poor oral intake. monitor bun/creat. hold nephrotoxins and monitor renal function daily. Card: Hypertension. controlled. On Norvasc/hold cozaar 2/2 to kiara Endocrine: Diabetes II. Hold metformin and glipizie. on d5 1/2 NS with monitoring of BGMs elevated TSH. tsh elevated @ 3.3. normal t4. Vascular lower ext edema. on lasix at home. no hx of chf reported. Also on norvasc at home. peripheral edema? fen on d5 1/2 @ 100 monitor electrolytes Visit type - Emergency Visit Emergency Visit: Yes ED Registration Date: 07/12/18 Care time: The patient presented to the Emergency Department on the above date and was hospitalized for further evaluation of their emergent condition. - New Patient This patient is new to me today: Yes Date on this admission: 07/16/18 - Critical Care Critical Care patient: No - Discharge Referral Referred to [facility] Med P.C.: No
[2018-07-17] MEDS ORDERED: PIPERACILLIN/TAZOBACTAM 3.375 GM VIAL IVPB ONE ×2 (02:31→09:37)
[2018-07-17] MEDS ORDERED: DEXTROSE 5%-WATER - 50 ML IVPB ONE ×2 (02:31→09:37)
[2018-07-17] MEDS: PIPERACILLIN/TAZOB 3.375 GM 3.375 GM in DEXTROSE 5%-WATER - 50 ML IVPB SCH ×2 (02:36→09:43)
[2018-07-17] MEDS: DEXTROSE 5%-0.45% SALINE 1,000 ML IV SCH ×2 (02:43→21:29)
[2018-07-17] MEDS: ASPIRIN 81 MG CHEWABLE TABLETS PO SCH (09:43)
[2018-07-17] MEDS: LOSARTAN POTASSIUM 50 MG TABLET (FP) PO SCH (09:43)
[2018-07-17] MEDS: amLODIPine BESYLATE 10 MG TABLET (FP) PO SCH (09:43)
[2018-07-17] MEDS: DONEPEZIL HCL 10 MG TABLET (FP) PO SCH (09:43)
--- NOTE | 2018-07-17 12:38 | PN ---
Progress Note, Physician History of Present Illness: patient still weak looks better more awake and alert weak - Current Medication List Current Medications: Active Medications Amlodipine Besylate (Norvasc -) 10 mg PO DAILY [facility] Last Admin: 07/17/18 09:43 Dose: 10 mg Aspirin (Asa -) 81 mg PO DAILY [facility] Last Admin: 07/17/18 09:43 Dose: 81 mg Donepezil HCl (Aricept -) 10 mg PO DAILY [facility] Last Admin: 07/17/18 09:43 Dose: 10 mg Dextrose/Sodium Chloride (D5-1/2ns -) 1,000 mls @ 100 mls/hr IV ASDIR JANE Last Admin: 07/17/18 02:43 Dose: 100 mls/hr Piperacillin Sod/Tazobactam (Sod 3.375 gm/ Dextrose) 50 mls @ 100 mls/hr IVPB Q8H-IV JANE; Protocol Last Admin: 07/17/18 09:43 Dose: 100 mls/hr Losartan Potassium (Cozaar -) 100 mg PO DAILY [facility] Last Admin: 07/17/18 09:43 Dose: 100 mg - Objective Vital Signs: Vital Signs Temperature 97.8 F 07/17/18 11:30 Pulse Rate 94 H 07/17/18 08:49 Respiratory Rate 18 07/17/18 08:49 Blood Pressure 154/92 07/17/18 08:49 O2 Sat by Pulse Oximetry (%) 97 07/17/18 09:00 Constitutional: Yes: No Distress, Calm Cardiovascular: Yes: Regular Rate and Rhythm Respiratory: Yes: Regular, CTA Bilaterally Gastrointestinal: Yes: Normal Bowel Sounds, Soft Musculoskeletal: Yes: WNL Extremities: Yes: WNL Neurological: Yes: Alert, Other Psychiatric: Yes: Other Labs: CBC, BMP 07/16/18 07:10 07/16/18 07:10 Assessment/Plan Problem List - Problems (1) KIARA (acute kidney injury) Code(s): N17.9 - ACUTE KIDNEY FAILURE, UNSPECIFIED (2) Dehydration Code(s): E86.0 - DEHYDRATION (3) Dementia Code(s): F03.90 - UNSPECIFIED DEMENTIA WITHOUT BEHAVIORAL DISTURBANCE (4) HTN (hypertension) Code(s): I10 - ESSENTIAL (PRIMARY) HYPERTENSION (5) Hypoglycemia Code(s): E16.2 - HYPOGLYCEMIA, UNSPECIFIED (6) T2DM (type 2 diabetes mellitus) Code(s): E11.9 - TYPE 2 DIABETES MELLITUS WITHOUT COMPLICATIONS (7) Toxic metabolic encephalopathy Code(s): G92 - TOXIC ENCEPHALOPATHY all cx reports noted plan will stop abx for now will see how the patient does rest as per the team patient improving
[2018-07-17 13:52] LABS: BASO % 0.7 % (0-2.0); EOS % 3.4 % (0-4.5); HEMATOCRIT 32.8 % (35.4-49); HEMOGLOBIN 10.7 GM/dL (11.7-16.9); LYMPH % 36.8 % (8-40); MCH 28.4 pg (25.7-33.7); MCHC 32.7 g/dl (32.0-35.9); MEAN CELL VOLUME 86.7 fl (80-96); MEAN PLT VOLUME 9.2 fl (7.5-11.1); MONO % 11.8 % (3.8-10.2); NEUT % 47.3 % (42.8-82.8); PLATELET COUNT 156 K/MM3 (134-434); RBC 3.78 M/mm3 (4.00-5.60); RDW 14.9 % (11.9-15.9); WHITE BLOOD COUNT 4.8 K/mm3 (4.0-10.0)
[2018-07-17 14:30] LABS: ALBUMIN 2.4 g/dl (3.4-5.0); BILIRUBIN,TOTAL 0.3 mg/dL (0.2-1); CALCIUM 8.8 mg/dL (8.5-10.1); CREATININE 1.3 mg/dL (0.55-1.3); POTASSIUM 4.1 mmol/L (3.5-5.1)
[2018-07-17] MEDS: INSULIN SLIDING SCALE (NOVOLOG) 1 VIAL SQ SCH ×2 (16:47→21:26)
--- NOTE | 2018-07-17 18:44 | PN ---
Physical Exam: SUBJECTIVE: Patient seen and examined at the bedside. more awake and alert, states his name, his daughters name and tells me he is from [facility]. Feels better. OBJECTIVE: Patient is a 72 year old male with a significant past medical history of diabetes (on glipizide and metformin), hypertension and vascular dementia. Patient presents to the ED with increased lethargy. At home he as noted to be hypoglycemic with a blood sugar in the 20s which prompted an ED visit. Pt has also had a poor appetite over the last few days. Patient lives with his daughter in [place]. Has a home health aid. Vital Signs Period Temp Pulse Resp BP Sys/Padilla Pulse Ox Last 24 Hr 97.8 F-99.0 F 85-94 18-20 122-154/74-92 97-97 GENERAL: The patient is awake, alert, and fully oriented, in no acute distress. HEAD: Normal with no signs of trauma. EYES: PERRL, extraocular movements intact, sclera anicteric, conjunctiva clear. No ptosis. ENT: Ears normal, nares patent, oropharynx clear without exudates, moist mucous membranes. NECK: Trachea midline, full range of motion, supple. LUNGS: Breath sounds equal, clear to auscultation bilaterally, no wheezes, no crackles, no accessory muscle use. HEART: Regular rate and rhythm, S1, S2 without murmur, rub or gallop. ABDOMEN: Soft, nontender, nondistended, normoactive bowel sounds, no guarding, no rebound, no hepatosplenomegaly, no masses. EXTREMITIES: 2+ pulses, warm, well-perfused, no edema. NEUROLOGICAL: Cranial nerves II through XII grossly intact. Normal speech, gait not observed. PSYCH: Normal mood, normal affect. SKIN: Warm, dry, normal turgor, no rashes or lesions noted Laboratory Results - last 24 hr 07/17/18 07/17/18 07/17/18 06:10 10:44 13:40 WBC 4.8 RBC 3.78 L Hgb 10.7 L Hct 32.8 L MCV 86.7 MCH 28.4 MCHC 32.7 RDW 14.9 Plt Count 156 MPV 9.2 Absolute Neuts (auto) 2.3 Neutrophils % 47.3 Lymphocytes % 36.8 Monocytes % 11.8 H Eosinophils % 3.4 Basophils % 0.7 Nucleated RBC % 0 Sodium Potassium Chloride Carbon Dioxide Anion Gap BUN Creatinine Est GFR (CKD-EPI)AfAm Est GFR (CKD-EPI)NonAf POC Glucometer 220 273 Random Glucose Calcium Total Bilirubin AST ALT Alkaline Phosphatase Total Protein Albumin 07/17/18 07/17/18 13:40 16:31 WBC RBC Hgb Hct MCV MCH MCHC RDW Plt Count MPV Absolute Neuts (auto) Neutrophils % Lymphocytes % Monocytes % Eosinophils % Basophils % Nucleated RBC % Sodium 144 Potassium 4.1 Chloride 111 H Carbon Dioxide 26 Anion Gap 7 L BUN 23 H Creatinine 1.3 Est GFR (CKD-EPI)AfAm 63.18 Est GFR (CKD-EPI)NonAf 54.51 POC Glucometer 275 Random Glucose 318 H* Calcium 8.8 Total Bilirubin 0.3 AST 33 ALT 46 Alkaline Phosphatase 114 Total Protein 6.0 L Albumin 2.4 L Active Medications Generic Name Dose Route Start Last Admin Trade Name Freq PRN Reason Stop Dose Admin Amlodipine Besylate 10 mg 07/13/18 10:00 07/17/18 09:43 Norvasc - PO 10 mg DAILY JANE Administration Aspirin 81 mg 07/13/18 10:00 07/17/18 09:43 Asa - PO 81 mg DAILY JANE Administration Donepezil HCl 10 mg 07/13/18 10:00 07/17/18 09:43 Aricept - PO 10 mg DAILY JANE Administration Dextrose/Sodium Chloride 1,000 mls @ 100 mls/hr 07/15/18 17:15 07/17/18 02:43 D5-1/2ns - IV 100 mls/hr ASDIR JANE Administration Insulin Aspart 1 vial 07/17/18 16:30 07/17/18 16:47 Novolog Vial Sliding Scale - SQ 6 units ACHS JANE Administration Protocol Losartan Potassium 100 mg 07/14/18 12:30 07/17/18 09:43 Cozaar - PO 100 mg DAILY JANE Administration ASSESSMENT/PLAN: Patient is a 72 year old male with a significant past medical history of diabetes (on glipizide and metformin), hypertension and vascular dementia. Patient presents to the ED with increased lethargy. At home he as noted to be hypoglycemic with a blood sugar in the 20s which prompted an ED visit. Pt has also had a poor appetite over the last few days. Patient lives with his daughter in [place]. Has a home health aid. Neuro: Acute metabolic encephalopathy secondary to profound hypoglycemia, hypothermia on admission. resolved. Mental status much improved. vitals are stable. no longer having episodes of hypoglycemia. Seen by ID and all antibiotics discontinued. elevated blood sugars today. start on novolog SS. Vascular dementia. Continue supportive care. On Aricept. Renal: Acute kidney injury. resolved. Card: Hypertension. controlled. On Norvasc/hold cozaar 2/2 to charla Endocrine: Diabetes II. Hold metformin and glipizie. started on novolog ss, stop ivf. elevated TSH. tsh elevated @ 3.3. normal t4. Vascular lower ext edema. on lasix at home. no hx of chf reported. Also on norvasc at home. fen tolerating po monitor electrolytes Visit type - Emergency Visit Emergency Visit: Yes ED Registration Date: 07/12/18 Care time: The patient presented to the Emergency Department on the above date and was hospitalized for further evaluation of their emergent condition. - New Patient This patient is new to me today: No - Critical Care Critical Care patient: No - Discharge Referral Referred to [facility] Med P.C.: No
[2018-07-18] MEDS ORDERED: LORazepam 2 MG/ML SDV VIAL IM ONE (01:55)
[2018-07-18] MEDS ORDERED: INSULIN (NOVOLOG) ASPART 100 UNITS/ML 10ML VIAL ONE ×3 (06:03→21:11)
[2018-07-18] MEDS: INSULIN SLIDING SCALE (NOVOLOG) 1 VIAL SQ SCH ×4 (06:08→21:13)
--- NOTE | 2018-07-18 07:48 | PN ---
Physical Exam: SUBJECTIVE: Patient seen and examined at the bedside. awake, answering questions, in no acute distress. OBJECTIVE: patient for discharge home, daughter will be picking up patient in the a.m. Vital Signs Period Temp Pulse Resp BP Sys/Padilla Pulse Ox Last 24 Hr 97.8 F-99.8 F 80-94 18-20 122-154/74-92 97-98 GENERAL: more awake and alert, in no acute distress. HEAD: Normal with no signs of trauma. EYES: Pupils equal, round and reactive to light, extraocular movements intact, sclera anicteric, conjunctiva clear. EARS, NOSE, THROAT: Ears normal, nares patent, oropharynx clear without exudates. Dry mucous membranes. NECK: Normal range of motion, supple LUNGS: Breath sounds equal, clear to auscultation bilaterally. No wheezes, and no crackles. No accessory muscle use. HEART: Regular rate and rhythm, normal S1 and S2 without murmur, rub or gallop. ABDOMEN: Soft, nontender, not distended, normoactive bowel sounds, no guarding LOWER EXTREMITIES: 2+ pt pulses, warm, well-perfused. 2+ pitting edema b/l NEUROLOGICAL: Cranial nerves II-XII intact. Normal speech. Normal gait. PSYCHIATRIC: Cooperative. Good eye contact. SKIN: Warm, dry Laboratory Results - last 24 hr 07/17/18 07/17/18 07/17/18 10:44 13:40 13:40 WBC 4.8 RBC 3.78 L Hgb 10.7 L Hct 32.8 L MCV 86.7 MCH 28.4 MCHC 32.7 RDW 14.9 Plt Count 156 MPV 9.2 Absolute Neuts (auto) 2.3 Neutrophils % 47.3 Lymphocytes % 36.8 Monocytes % 11.8 H Eosinophils % 3.4 Basophils % 0.7 Nucleated RBC % 0 Sodium 144 Potassium 4.1 Chloride 111 H Carbon Dioxide 26 Anion Gap 7 L BUN 23 H Creatinine 1.3 Est GFR (CKD-EPI)AfAm 63.18 Est GFR (CKD-EPI)NonAf 54.51 POC Glucometer 273 Random Glucose 318 H* Calcium 8.8 Total Bilirubin 0.3 AST 33 ALT 46 Alkaline Phosphatase 114 Total Protein 6.0 L Albumin 2.4 L 07/17/18 07/17/18 07/18/18 16:31 21:24 05:28 WBC RBC Hgb Hct MCV MCH MCHC RDW Plt Count MPV Absolute Neuts (auto) Neutrophils % Lymphocytes % Monocytes % Eosinophils % Basophils % Nucleated RBC % Sodium Potassium Chloride Carbon Dioxide Anion Gap BUN Creatinine Est GFR (CKD-EPI)AfAm Est GFR (CKD-EPI)NonAf POC Glucometer 275 198 155 Random Glucose Calcium Total Bilirubin AST ALT Alkaline Phosphatase Total Protein Albumin Active Medications Generic Name Dose Route Start Last Admin Trade Name Freq PRN Reason Stop Dose Admin Amlodipine Besylate 10 mg 07/13/18 10:00 07/17/18 09:43 Norvasc - PO 10 mg DAILY JANE Administration Aspirin 81 mg 07/13/18 10:00 07/17/18 09:43 Asa - PO 81 mg DAILY JANE Administration Donepezil HCl 10 mg 07/13/18 10:00 07/17/18 09:43 Aricept - PO 10 mg DAILY JANE Administration Insulin Aspart 1 vial 07/17/18 16:30 07/18/18 06:08 Novolog Vial Sliding Scale - SQ 2 units ACHS JANE Administration Protocol Losartan Potassium 100 mg 07/14/18 12:30 07/17/18 09:43 Cozaar - PO 100 mg DAILY JANE Administration ASSESSMENT/PLAN: Patient is a 72 year old male with a significant past medical history of diabetes (on glipizide and metformin), hypertension and vascular dementia. Patient presents to the ED with increased lethargy. At home he as noted to be hypoglycemic with a blood sugar in the 20s which prompted an ED visit. Pt has also had a poor appetite over the last few days. Patient lives with his daughter in [place]. Has a home health aid. Neuro: Acute metabolic encephalopathy secondary to profound hypoglycemia, hypothermia on admission. resolved. Mental status much improved. vitals are stable. no longer having episodes of hypoglycemia. Seen by ID and all antibiotics discontinued. started on bgms with SS to monitor blood sugars. Vascular dementia. Continue supportive care. On Aricept. He is bed bound at baseline. Renal: Acute kidney injury. resolved. Card: Hypertension. controlled. On Norvasc/continue Losartan and ASA. Endocrine: Diabetes II. Hold metformin and glipizie. started on novolog ss elevated TSH. tsh elevated @ 3.3. normal t4. Vascular lower ext edema. Continue home lasix. fen tolerating po monitor electrolytes Visit type - Emergency Visit Emergency Visit: Yes ED Registration Date: 07/12/18 Care time: The patient presented to the Emergency Department on the above date and was hospitalized for further evaluation of their emergent condition. - New Patient This patient is new to me today: No - Critical Care Critical Care patient: No - Discharge Referral Referred to [facility] Med P.C.: No
[2018-07-18] MEDS: ASPIRIN 81 MG CHEWABLE TABLETS PO SCH (08:15)
[2018-07-18] MEDS: DONEPEZIL HCL 10 MG TABLET (FP) PO SCH (08:15)
[2018-07-18] MEDS: amLODIPine BESYLATE 10 MG TABLET (FP) PO SCH (08:15)
[2018-07-18] MEDS: LOSARTAN POTASSIUM 50 MG TABLET (FP) PO SCH (08:15)
--- NOTE | 2018-07-18 10:33 | PN ---
Progress Note, Physician History of Present Illness: patient more awake and alert still confused - Current Medication List Current Medications: Active Medications Amlodipine Besylate (Norvasc -) 10 mg PO DAILY [facility] Last Admin: 07/18/18 08:15 Dose: 10 mg Aspirin (Asa -) 81 mg PO DAILY [facility] Last Admin: 07/18/18 08:15 Dose: 81 mg Donepezil HCl (Aricept -) 10 mg PO DAILY [facility] Last Admin: 07/18/18 08:15 Dose: 10 mg Insulin Aspart (Novolog Vial Sliding Scale -) 1 vial SQ ACHS [facility]; Protocol Last Admin: 07/18/18 06:08 Dose: 2 units Losartan Potassium (Cozaar -) 100 mg PO DAILY [facility] Last Admin: 07/18/18 08:15 Dose: 100 mg - Objective Vital Signs: Vital Signs Temperature 97.5 F L 07/18/18 09:15 Pulse Rate 94 H 07/18/18 09:15 Respiratory Rate 18 07/18/18 09:15 Blood Pressure 154/94 07/18/18 09:15 O2 Sat by Pulse Oximetry (%) 98 07/18/18 09:00 Constitutional: Yes: No Distress, Calm Cardiovascular: Yes: S1, S2 Respiratory: Yes: Regular, CTA Bilaterally Gastrointestinal: Yes: Normal Bowel Sounds, Soft Musculoskeletal: Yes: WNL Extremities: Yes: WNL Neurological: Yes: Alert, Confusion, Other Psychiatric: Yes: Other Labs: CBC, BMP 07/17/18 13:40 07/17/18 13:40 Assessment/Plan Problem List - Problems (1) KIARA (acute kidney injury) Code(s): N17.9 - ACUTE KIDNEY FAILURE, UNSPECIFIED (2) Dehydration Code(s): E86.0 - DEHYDRATION (3) Dementia Code(s): F03.90 - UNSPECIFIED DEMENTIA WITHOUT BEHAVIORAL DISTURBANCE (4) HTN (hypertension) Code(s): I10 - ESSENTIAL (PRIMARY) HYPERTENSION (5) Hypoglycemia Code(s): E16.2 - HYPOGLYCEMIA, UNSPECIFIED (6) T2DM (type 2 diabetes mellitus) Code(s): E11.9 - TYPE 2 DIABETES MELLITUS WITHOUT COMPLICATIONS (7) Toxic metabolic encephalopathy Code(s): G92 - TOXIC ENCEPHALOPATHY all cx reports noted plan await for all cx reports continue to monitor rest as per the team
--- NOTE | 2018-07-18 16:48 | DS ---
Physical Exam: SUBJECTIVE: Patient seen and examined OBJECTIVE: Vital Signs Period Temp Pulse Resp BP Sys/Padilla Pulse Ox Last 24 Hr 97.4 F-99.8 F 80-100 18-20 150-161/86-117 98-98 PHYSICAL EXAM GENERAL: The patient is awake, alert, and fully oriented, in no acute distress. HEAD: Normal with no signs of trauma. EYES: PERRL, extraocular movements intact, sclera anicteric, conjunctiva clear. ENT: Ears normal, nares patent, oropharynx clear without exudates, moist mucous membranes. NECK: Trachea midline, full range of motion, supple. LUNGS: Breath sounds equal, clear to auscultation bilaterally, no wheezes, no crackles, no accessory muscle use. HEART: Regular rate and rhythm, S1, S2 without murmur, rub or gallop. ABDOMEN: Soft, nontender, nondistended, normoactive bowel sounds, no guarding, no rebound, no hepatosplenomegaly, no masses. EXTREMITIES: 2+ pulses, warm, well-perfused, no edema. NEUROLOGICAL: Cranial nerves II through XII grossly intact. Normal speech, gait not observed. PSYCH: Normal mood, normal affect. SKIN: Warm, dry, normal turgor, no rashes or lesions noted. LABS Laboratory Results - last 24 hr 07/17/18 07/18/18 07/18/18 21:24 05:28 11:11 POC Glucometer 198 155 186 HOSPITAL COURSE: Date of Admission:07/12/18 Date of Discharge: 07/18/18 Patient is a 72 year old male with a significant past medical history of diabetes (on glipizide and metformin), hypertension and vascular dementia. Patient presents to the ED with increased lethargy. At home he as noted to be hypoglycemic with a blood sugar in the 20s which prompted an ED visit. Pt has also had a poor appetite over the last few days. Patient lives with his daughter in [place]. Has a home health aid. Hospital course by problem list: Neuro: Acute metabolic encephalopathy secondary to profound hypoglycemia, hypothermia on admission. resolved. Mental status much improved. vitals are stable. no longer having episodes of hypoglycemia. Seen by ID and all antibiotics discontinued. started on bgms with SS to monitor blood sugars. Vascular dementia. Continue supportive care. On Aricept. He is bed bound at baseline. Renal: Acute kidney injury. resolved. Card: Hypertension. controlled. On Norvasc/continue Losartan and ASA. Endocrine: Diabetes II. Hold metformin and glipizie. started on novolog ss elevated TSH/subclinical hypothyrodism. tsh elevated @ 3.3. normal t4. Vascular lower ext edema. Continue home lasix. DISCHARGE PLAN: discharge home under his daughter's care. patient also has home health aides. Minutes to complete discharge: 60 Discharge Summary Reason For Visit: HYPOGLYCEMIA Current Active Problems KIARA (acute kidney injury) (Acute) Dehydration (Acute) Dementia (Acute) HTN (hypertension) (Acute) Hypoglycemia (Acute) T2DM (type 2 diabetes mellitus) (Acute) Toxic metabolic encephalopathy (Acute) Condition: Improved - Instructions Diet, Activity, Other Instructions: Mr. Alcazar. You were admitted for lethargy and low blood sugars. We will be discharging you home today and recommend the following: Low blood sugars/Hypoglycemia. We have discontinued your Metformin but continued your Glipizide. It is important that you see your primary care doctor before starting the Metformin. Your HmgA1c was 6.6. Please check your blood sugars three times per day before breakfast and once before bedtime. If your blood sugar drops below 70, please take in some apple juice or orange juice and inform your primary care doctor right away. You have completed the antibiotics during your hospital stay. Continue your home medications except for the Metformin until you are evaluated by your primary care doctor. Thank you for allowing us to care for you. Disposition: HOME - Home Medications Comprehensive Discharge Medication List: Ambulatory Orders Amlodipine Besylate 10 mg PO DAILY 07/12/18 Aspirin [ASA -] 81 mg PO DAILY 07/12/18 Donepezil HCl 10 mg PO DAILY 07/12/18 Furosemide 20 mg PO DAILY 07/12/18 Glipizide [Glipizide ER] 10 mg PO DAILY 07/12/18 Losartan Potassium 100 mg PO DAILY 07/12/18 Metformin HCl [Glucophage] 1,000 mg PO DAILY 07/12/18 This patient is new to me today: No Emergency Visit: Yes ED Registration Date: 07/12/18 Care time: The patient presented to the Emergency Department on the above date and was hospitalized for further evaluation of their emergent condition. Critical Care patient: No - Discharge Referral Referred to [facility] Med P.C.: No
[2018-07-19] MEDS: INSULIN SLIDING SCALE (NOVOLOG) 1 VIAL SQ SCH ×2 (06:22→11:55)
[2018-07-19 08:52] VITALS: TEMP 98.5
[2018-07-19] MEDS ORDERED: PT OWN MED DRAWER 7, Y5N ONE (09:37)
[2018-07-19] MEDS: DONEPEZIL HCL 10 MG TABLET (FP) PO SCH (09:41)
[2018-07-19] MEDS: ASPIRIN 81 MG CHEWABLE TABLETS PO SCH (09:41)
[2018-07-19] MEDS: amLODIPine BESYLATE 10 MG TABLET (FP) PO SCH (09:41)
[2018-07-19] MEDS: LOSARTAN POTASSIUM 50 MG TABLET (FP) PO SCH (09:41)
--- NOTE | 2018-07-19 13:07 | PN ---
Physical Exam: SUBJECTIVE: Patient seen and examined at the bedside. asking for his family, wants to go home. tells me he feels well. denies pain. states he is in a [facility] in [place], but he lives in [place]. OBJECTIVE: Vital Signs Period Temp Pulse Resp BP Sys/Padilla Pulse Ox Last 24 Hr 97 F-98.5 F 82-88 18-20 148-158/86-96 98-98 Laboratory Results - last 24 hr 07/18/18 07/18/18 07/19/18 16:51 21:01 06:08 POC Glucometer 263 281 153 07/19/18 11:51 POC Glucometer 210 Active Medications Generic Name Dose Route Start Last Admin Trade Name Freq PRN Reason Stop Dose Admin Amlodipine Besylate 10 mg 07/13/18 10:00 07/19/18 09:41 Norvasc - PO 10 mg DAILY JANE Administration Aspirin 81 mg 07/13/18 10:00 07/19/18 09:41 Asa - PO 81 mg DAILY JANE Administration Donepezil HCl 10 mg 07/13/18 10:00 07/19/18 09:41 Aricept - PO 10 mg DAILY JANE Administration Insulin Aspart 1 vial 07/17/18 16:30 07/19/18 11:55 Novolog Vial Sliding Scale - SQ 4 units ACHS JANE Administration Protocol Losartan Potassium 100 mg 07/14/18 12:30 07/19/18 09:41 Cozaar - PO 100 mg DAILY JANE Administration ASSESSMENT/PLAN:
[2018-07-19 13:27] VITALS: BP 125/83; PULSE 78
--- NOTE | 2018-07-19 13:31 | PN ---
Progress Note, Physician History of Present Illness: patient very weak unable to talk fluctuating in mental status - Current Medication List Current Medications: Active Medications Amlodipine Besylate (Norvasc -) 10 mg PO DAILY [facility] Last Admin: 07/19/18 09:41 Dose: 10 mg Aspirin (Asa -) 81 mg PO DAILY [facility] Last Admin: 07/19/18 09:41 Dose: 81 mg Donepezil HCl (Aricept -) 10 mg PO DAILY [facility] Last Admin: 07/19/18 09:41 Dose: 10 mg Insulin Aspart (Novolog Vial Sliding Scale -) 1 vial SQ ACHS [facility]; Protocol Last Admin: 07/19/18 11:55 Dose: 4 units Losartan Potassium (Cozaar -) 100 mg PO DAILY [facility] Last Admin: 07/19/18 09:41 Dose: 100 mg - Objective Vital Signs: Vital Signs Temperature 98.5 F 07/19/18 13:27 Pulse Rate 78 07/19/18 13:27 Respiratory Rate 18 07/19/18 13:27 Blood Pressure 125/83 07/19/18 13:27 O2 Sat by Pulse Oximetry (%) 98 07/19/18 09:00 Constitutional: Yes: No Distress, Calm Cardiovascular: Yes: Regular Rate and Rhythm Gastrointestinal: Yes: Soft Musculoskeletal: Yes: WNL Extremities: Yes: WNL Neurological: Yes: Other Labs: CBC, BMP 07/17/18 13:40 07/17/18 13:40 Assessment/Plan Problem List - Problems (1) KIARA (acute kidney injury) Code(s): N17.9 - ACUTE KIDNEY FAILURE, UNSPECIFIED (2) Dehydration Code(s): E86.0 - DEHYDRATION (3) Dementia Code(s): F03.90 - UNSPECIFIED DEMENTIA WITHOUT BEHAVIORAL DISTURBANCE (4) HTN (hypertension) Code(s): I10 - ESSENTIAL (PRIMARY) HYPERTENSION (5) Hypoglycemia Code(s): E16.2 - HYPOGLYCEMIA, UNSPECIFIED (6) T2DM (type 2 diabetes mellitus) Code(s): E11.9 - TYPE 2 DIABETES MELLITUS WITHOUT COMPLICATIONS (7) Toxic metabolic encephalopathy Code(s): G92 - TOXIC ENCEPHALOPATHY plan continues to fluctuate in mental status continue supportive care
[2018-07-19 14:14] LABS: BASO % 0.6 % (0-2.0); HEMATOCRIT 34.9 % (35.4-49); HEMOGLOBIN 11.3 GM/dL (11.7-16.9); LYMPH % 36.4 % (8-40); MCH 28.5 pg (25.7-33.7); MCHC 32.3 g/dl (32.0-35.9); MEAN PLT VOLUME 8.6 fl (7.5-11.1); MONO % 12.9 % (3.8-10.2); NEUT % 45.1 % (42.8-82.8); PLATELET COUNT 172 K/MM3 (134-434); RBC 3.97 M/mm3 (4.00-5.60); RDW 14.7 % (11.9-15.9); WHITE BLOOD COUNT 4.3 K/mm3 (4.0-10.0)
[2018-07-19 14:56] LABS: ALBUMIN 2.6 g/dl (3.4-5.0); BILIRUBIN,TOTAL 0.2 mg/dL (0.2-1); CALCIUM 8.9 mg/dL (8.5-10.1); MAGNESIUM 1.8 mg/dL (1.8-2.4); POTASSIUM 4.4 mmol/L (3.5-5.1); TOT PROT 6.3 g/dl (6.4-8.2)
--- NOTE | 2018-07-19 15:12 | DS ---
Physical Exam: SUBJECTIVE: Patient seen and examined earlier this morning at 10:30 a.m. Patient seen and examined at the bedside. asking for his family, wants to go home. tells me he feels well. denies pain. states he is in a group home in [place], but he lives in [place]. able to tell me his daughters names. per staff, patient restless at night and at times agitated. OBJECTIVE: at 1pm patient daughter came to chicken picker patient but found him to be lethargic. assured her that we will monitor him. repeat vitals are stable. bedside bgm 262 , no facial droop. cbc/cmp stable. arousable to name and voice. a head ct ordered. At approximately 3pm, patient mental status improved and daughter more comfortable with taking him home. she declined a head ct. patient was seen by physical therapy before discharge and walked minimally and was unsteady. per daughter he walks with a rolling rolator and is able to manage it on his own. He has home physical therapy set up. Strongly recommend that patient have his home physical therapy for 3 times per week instead of weekly. Daughter willing to take patient home back to [place] with close follow up with his primary care doctor. Vital Signs Period Temp Pulse Resp BP Sys/Padilla Pulse Ox Last 24 Hr 97 F-98.5 F 78-88 18-20 125-158/83-96 98-98 PHYSICAL EXAM GENERAL: The patient is awake, alert, able to tell me his name, but has hx of vascular dementia and mentation at times waxes and wanes. HEAD: Normal with no signs of trauma. EYES: PERRL, extraocular movements intact, sclera anicteric, conjunctiva clear. ENT: Ears normal, nares patent, oropharynx clear without exudates, moist mucous membranes. NECK: Trachea midline, full range of motion, supple. LUNGS: Breath sounds equal, clear to auscultation bilaterally . HEART: Regular rate and rhythm ABDOMEN: Soft, nontender, nondistended, normoactive bowel sounds, no guarding, no rebound, no hepatosplenomegaly, no masses. EXTREMITIES: 2+ pulses, warm, well-perfused, no edema. NEUROLOGICAL: speech at baseline, comprehensible, but at times garbled, this is his baseline per daughter. PSYCH: calm and cooperative SKIN: Warm, dry, normal turgor, no rashes or lesions noted. LABS Laboratory Results - last 24 hr 07/18/18 07/18/18 07/19/18 16:51 21:01 06:08 WBC RBC Hgb Hct MCV MCH MCHC RDW Plt Count MPV Absolute Neuts (auto) Neutrophils % Lymphocytes % Monocytes % Eosinophils % Basophils % Nucleated RBC % Sodium Potassium Chloride Carbon Dioxide Anion Gap BUN Creatinine Est GFR (CKD-EPI)AfAm Est GFR (CKD-EPI)NonAf POC Glucometer 263 281 153 Random Glucose Calcium Magnesium Total Bilirubin AST ALT Alkaline Phosphatase Total Protein Albumin 07/19/18 07/19/18 07/19/18 11:51 13:20 14:05 WBC 4.3 RBC 3.97 L Hgb 11.3 L Hct 34.9 L MCV 88.0 MCH 28.5 MCHC 32.3 RDW 14.7 Plt Count 172 MPV 8.6 Absolute Neuts (auto) 2.0 Neutrophils % 45.1 Lymphocytes % 36.4 Monocytes % 12.9 H Eosinophils % 5.0 H Basophils % 0.6 Nucleated RBC % 0 Sodium Potassium Chloride Carbon Dioxide Anion Gap BUN Creatinine Est GFR (CKD-EPI)AfAm Est GFR (CKD-EPI)NonAf POC Glucometer 210 262 Random Glucose Calcium Magnesium Total Bilirubin AST ALT Alkaline Phosphatase Total Protein Albumin 07/19/18 14:05 WBC RBC Hgb Hct MCV MCH MCHC RDW Plt Count MPV Absolute Neuts (auto) Neutrophils % Lymphocytes % Monocytes % Eosinophils % Basophils % Nucleated RBC % Sodium 147 H Potassium 4.4 Chloride 112 H Carbon Dioxide 30 Anion Gap 5 L BUN 21 H Creatinine 1.0 Est GFR (CKD-EPI)AfAm 86.76 Est GFR (CKD-EPI)NonAf 74.86 POC Glucometer Random Glucose 311 H* Calcium 8.9 Magnesium 1.8 Total Bilirubin 0.2 AST 38 H ALT 53 Alkaline Phosphatase 116 Total Protein 6.3 L Albumin 2.6 L HOSPITAL COURSE: Date of Admission:07/12/18 Date of Discharge: 07/19/18 THIS DISCHARGE SUMMARY SUPERSEDES PREVIOUS DISCHARGE SUMMARY DATED 07/18/2018 Patient is a 72 year old male with a significant past medical history of diabetes (on glipizide and metformin), hypertension and vascular dementia. Patient presents to the ED with increased lethargy. At home he as noted to be hypoglycemic with a blood sugar in the 20s which prompted an ED visit. Pt has also had a poor appetite over the last few days. Patient lives with his daughter in [place]. Has a home health aid. Hospital course by problem list: Neuro: Acute metabolic encephalopathy secondary to profound hypoglycemia, hypothermia on admission. resolved. Mental status much improved. vitals are stable. labs are stable.no lactic acidosis. no longer having episodes of hypoglycemia. Seen by ID and all antibiotics discontinued. started on bgms with SS to monitor blood sugars. Recommend that his blood sugars be monitored every 4 hours at home for at least the next 48-72 hours. Daughter has glucometer at home. Will favor to hold the Metformin at this time unless indicated by his PCP. Continue the Glipizide with close monitoring. Vascular dementia. Continue supportive care. On Aricept. He is bed bound at baseline. Renal: Acute kidney injury. resolved. Card: Hypertension. controlled. On Norvasc/continue Losartan and ASA. may need further uptitration of BP meds per his primary care doctor. Endocrine: Diabetes II. Hold metformin. Resume glipizie. monitor BGMs q 4 for next 48-72 hours. elevated TSH/subclinical hypothyrodism. tsh elevated @ 3.3. normal t4. Vascular lower ext edema. Continue home lasix. DISCHARGE PLAN: discharge home under his daughter's care. patient also has home health aides. PATIENT WILL NEED AN INCREASE OF HIS HOME PHYSICAL THERAPY - THREE TIMES PER WEEK FOR LOWER EXTREMITY WEAKNESS. Minutes to complete discharge: 60 Discharge Summary Reason For Visit: HYPOGLYCEMIA Current Active Problems KIARA (acute kidney injury) (Acute) Dehydration (Acute) Dementia (Acute) HTN (hypertension) (Acute) Hypoglycemia (Acute) T2DM (type 2 diabetes mellitus) (Acute) Toxic metabolic encephalopathy (Acute) Condition: Improved - Instructions Diet, Activity, Other Instructions: Mr. Alcazar. You were admitted for lethargy and low blood sugars and altered mentation. We will be discharging you home today and recommend the following: Low blood sugars/Hypoglycemia. We have discontinued your Metformin but continued your Glipizide. It is important that you see your primary care doctor before starting the Metformin. Your HmgA1c was 6.6. Please check your blood sugars three times per day before breakfast and once before bedtime. If your blood sugar drops below 70, please take some apple juice or orange juice, recheck your blood sugar and inform your primary care doctor right away. You have completed the antibiotics during your hospital stay. Continue your home medications except for the Metformin until you are evaluated by your primary care doctor. Thank you for allowing us to care for you. Disposition: HOME - Home Medications Comprehensive Discharge Medication List: Ambulatory Orders Amlodipine Besylate 10 mg PO DAILY 07/12/18 Aspirin [ASA -] 81 mg PO DAILY 07/12/18 Donepezil HCl 10 mg PO DAILY 07/12/18 Furosemide 20 mg PO DAILY 07/12/18 Glipizide [Glipizide ER] 10 mg PO DAILY 07/12/18 Losartan Potassium 100 mg PO DAILY 07/12/18 This patient is new to me today: No Emergency Visit: Yes ED Registration Date: 07/12/18 Care time: The patient presented to the Emergency Department on the above date and was hospitalized for further evaluation of their emergent condition. Critical Care patient: No - Discharge Referral Referred to [facility] Med P.C.: No
== END 2018-07-19 16:00 | disposition home or self-care (01) | DRG 637 ==
LOC: JER 09:17 → JERBED 12:41 → J6S 14:51 → OBSVTOIN 19:21 → J6S 07-18 14:01
PROVIDERS: ADMIT Internal Medicine; ATTEND Nurse Practitioner Family
DX: E11.649 Type 2 diabetes mellitus with hypoglycemia without coma (principal); G93.41 Metabolic encephalopathy; N17.9 Acute kidney failure, unspecified; F01.50 Vascular dementia, unspecified severity, without behavioral disturbance, psychotic disturbance, mood disturbance, and anxiety; N18.3 Chronic kidney disease, stage 3 (moderate); I12.9 Hypertensive chronic kidney disease with stage 1 through stage 4 chronic kidney disease, or unspecified chronic kidney disease; E86.0 Dehydration
CPT/HCPCS: 36415; 71045-TC-FY; 76775-TC; 76856-TC; 80048; 80053; 81003; 82009; 82565; 82962; 83036; 83605; 83735; 84100; 84300; 84439; 84443; 84484; 85025; 85027; 87040; 87045; 87046; 87086; 93005; 93010; 97116-GP; 97162-GP; 99285-25; G0378